=== PATIENT | male | born 1965 | race Two or more races ===

== ENCOUNTER 2024-06-22 03:38 | Emergency (ER) | payer BC, SELFPAY ==
[2024-06-22 03:39] VITALS: BMI 36.9
[2024-06-22 03:45] VITALS: BP 146/87; PULSE 76; RESP 18; TEMP 37; O2SAT 97
--- NOTE | 2024-06-22 03:59 | XR_ITS ---
Examination: PA chest single view Technique: Upright PA chest single view Exam date and time: June 22, 2024 0406 hrs. Indications: Chest pain epigastric pain today. Findings: Normal heart size Lungs are clear. The osseous structures are intact with old fracture right clavicle Impression: No active disease
--- NOTE | 2024-06-22 03:59 | EKG_ITS ---
[facility] Test Date: 2024-06-22 Pat Name: MIGUEL ENGLISH Department: Room: - Gender: Male Residential Assistant: : 1965 Requested By: Jaguar Haskins Order Number: [id number] Reading MD: Jaguar Haskins Measurements Intervals [place] Rate: 77 P: 28 [place]: 137 QRS: 24 QRSD: 93 T: 48 QT: 360 QTc: 409 Interpretive Statements SINUS RHYTHM No previous ECG available for comparison /store/S0/[id number]
--- NOTE | 2024-06-22 04:00 | PD.EDRME ---
Rapid Medical Screening Exam RME Arrival date/time: 06/22/24 03:38 58M with history of diverticulitis and cholecystectomy presents to ED with 2 days of lower chest/epigastric pain and N/V. Patient states these feels different than his diverticulitis. It feels like heartburn but in my stomach. Chief Complaint: Abdominal Pain Vital signs: Vital Signs Temperature 98.6 F 06/22/24 03:45 Pulse Rate 76 06/22/24 03:45 Respiratory Rate 18 06/22/24 03:45 Blood Pressure 146/87 H 06/22/24 03:45 Pulse Oximetry (%) 97 06/22/24 03:45 Oxygen Delivery Method Room Air 06/22/24 03:45
[2024-06-22] MEDS: MG HYD/AL HYD/SIME (Maalox Reg) SUSP 30 ML UDC PO (04:14)
[2024-06-22] MEDS: ONDANSETRON ODT 4 MG TABRAP PO (04:14)
[2024-06-22] MEDS: FAMOTIDINE 20 MG TABLET 40 MG PO (04:14)
[2024-06-22 04:53] LABS: Collection Type, Urine Clean Catch; RBC,Urine 0 /hpf (0-3); Squamous Epithelial Cell,Urine 0 /hpf (0-5); WBC,Urine 0 /hpf (0-5)
[2024-06-22 04:57] LABS: Basophils % (Auto) 0 % (0-2.5); Eosinophils # (Auto) 0.1 Thou/mm3 (0.0-0.5); Eosinophils % (Auto) 1 % (0-10); Hematocrit 49.9 % (41.0-53.0); Hemoglobin 17.9 g/dL (13.5-16.0); Immature Granulocytes % (Auto) 0 % (0-0); Immature Granulocytes Auto 0.04 Thou/mm3 (0.00-0.00); Lymphocytes % (Auto) 17 % (10-50); Mean Corpuscular HGB Conc 35.9 g/dl (31.0-37.0); Mean Corpuscular Hemoglobin 29.2 pg (25.0-35.0); Mean Corpuscular Volume 82 fL (80-100); Monocytes # (Auto) 0.5 Thou/mm3 (0.0-0.8); Monocytes % (Auto) 5 % (0-12); Neutrophils # (Auto) 8.9 Thou/mm3 (1.8-7.7); Neutrophils % (Auto) 77 % (37-80); Nucleated Red Blood Cell % 0 /100 WBC (0); Platelet Count 238 Thou/mm3 (140-440); Red Blood Count 6.12 Miln/mm3 (4.50-5.90); White Blood Count 11.6 Thou/mm3 (3.8-10.6)
[2024-06-22 05:20] LABS: Alanine Aminotransferase 12 U/L (10-49); Albumin, Serum 4.7 gm/dL (3.5-5.0); Albumin/Globulin Ratio 2.1 (1.2-2.2); Alkaline Phosphatase 60 U/L (46-116); Anion Gap 6 (7-16); Aspartate Amino Transferase 13 U/L (0-34); BUN/Creatinine Ratio 12 Ratio (12-20); Bilirubin,Total 2.3 mg/dL (0.3-1.2); Blood Urea Nitrogen 13 mg/dL (9-23); Calcium 9.5 mg/dL (8.3-10.6); Calcium (Corrected) 9.5 mg/dL (8.5-10.1); Carbon Dioxide 29.6 mMol/L (20.0-31.0); Chloride 102 mMol/L (98-107); Creatinine (Component) 1.1 mg/dL (0.6-1.3); Estimated Creatinine Clearance 87.5 mL/min (>60); Globulin 2.2 gm/dL (2.3-3.5); Glucose 141 mg/dL (74-106); Lipase 45 U/L (12-53); Osmolality,Calculated 277 (275-295); Potassium 3.6 mMol/L (3.4-5.1); Sodium 138 mMol/L (136-145); Total Protein 6.9 gm/dL (5.7-8.2); Troponin I < 0.002 ng/mL (0.0-0.045); eGFR > 60 See Note
[2024-06-22 05:28] LABS: Bacteria,Urine Rare; Bilirubin,Urine Negative (Negative); Blood,Urine Negative (Negative); Clarity,Urine Clear (Clear/Hazy); Color,Urine Yellow (Lt Yel-Yel); Glucose, Urine Negative (Negative); Hyaline Casts,Urine < 1 /hpf (0-1); Ketones,Urine Trace (Negative); Leukocyte Esterase,Urine Negative (Negative); Nitrite,Urine Negative (Negative); Protein,Urine Trace (Neg - Trace); Specific Gravity,Urine 1.031 (1.001-1.035); Urobilinogen,Urine Negative mg/dL (0.0-1.0)
[2024-06-22 05:36] LABS: Amphetamine/Methamp Scrn,U Negative (Negative); Barbiturate Screen,Urine Negative (Negative); Benzodiazepines Screen,Urine Negative (Negative); Benzoylecgonine Screen, Ur Negative (Negative); Fentanyl Screen,Urine Negative (Negative); Opiate Screen,Urine Negative (Negative); THC Screen,Urine Positive (Negative)
[2024-06-22 07:33] VITALS: BP 150/89; PULSE 71; RESP 18; O2SAT 98
--- NOTE | 2024-06-22 07:39 | PC.NURSE ---
patient came in today for abdominal pain and nausea states pain has been going on for 1 week
--- NOTE | 2024-06-22 08:33 | PD.EDABDPN ---
ED Abdominal Pain RME/HPI General Chief Complaint: Abdominal Pain Stated complaint: ABD PAIN, NAUSEA Time seen by provider: 06/22/24 04:29 Arrival date/time: 06/22/24 03:38 Limitations: no limitations RME / HPI RME / HPI narrative: 06/22/24 03:38 58M with history of diverticulitis and cholecystectomy presents to ED with 2 days of lower chest/epigastric pain and N/V. Patient states these feels different than his diverticulitis. It feels like heartburn but in my stomach. DR. ROJELIO STOLL ED EVALUATION: 58 year old male with history of diverticulitis years ago , s/p cholecystectomy presents to the ED for complaint of abdominal pain beginning 3 days ago. Mentioned he had pumpkin seeds prior to onset of pain and unsure if that is an attributing factor. States in the last few hours the pain became so severe, prompting ED visit. Pain described as a burning sensation in the epigastric region with a pressure pain all throughout, rating as severe. Accompanied by nausea. States he has experienced similar pain at lesser severity and during that time diagnosed with diverticulitis. Denies fevers, chills, chest pain, cough, shortness of breath, diarrhea, constipation, or urinary symptoms. Related Data Previous Rx's ?Medication ?Instructions ?Recorded dicyclomine 20 mg tablet 20 mg PO QID PRN abdominal pain 06/22/24 #20 tabs simethicone 500 mg capsule 500 mg PO QDAY #20 caps 06/22/24 Allergies Allergy/AdvReac Type Severity Reaction Status Date / Time No Known Allergies Allergy Verified 10/31/22 17:16 Review of Systems Review of Systems Narrative Review of Systems: GEN: No fever, no chills, no weight loss EYES: No discharge, no visual changes, no pain HEENT: No ear pain, no congestion, no sore throat PULM: No shortness of breath, no cough, no congestion CV: No chest pain, no dyspnea on exertion, no palpitations GI: + nausea, no vomiting, no diarrhea, +pain, no constipation : No frequency, no urgency, no dysuria MUSC/SKEL: No joint pain, no back pain SKIN: No rash NEURO: No weakness, no headache Past Medical History Past Medical History CARDIAC: Negative Congestive Heart Failure RESPIRATORY: Negative Chronic Obstructive Pulmonary Disease (COPD) GASTROINTESTINAL: Positive Diverticulitis GENITOURINARY: Negative Renal Disease ENDOCRINE: Negative Diabetes Mellitus Type 1 or Diabetes Mellitus Type 2 Social History SMOKING STATUS: Never smoker ED Exam General Limitations: Present no limitations General appearance: Present alert and other (Appears to be in pain ) Head Head exam: Present atraumatic, normocephalic and normal inspection Eye Eye exam: Present normal appearance, PERRL and EOMI ENT ENT exam: Present normal exam, normal oropharynx and mucous membranes moist Neck Neck exam: Present normal inspection, full ROM and trachea midline Chest Chest inspection: Present normal inspection and symmetric chest wall rise Respiratory Respiratory exam: Present normal lung sounds bilaterally Cardiovascular Cardiovascular exam: Present regular rate, normal rhythm and normal heart sounds Abdominal Exam Abdominal exam: Present soft, distention (moderate ), tenderness (moderate ttp in all quadrants, no point tenderness ) and normal bowel sounds; Absent guarding, rebound or rigidity Extremities Exam Extremities exam: Present normal inspection and full ROM Back Exam Back exam: Present normal inspection and full ROM Neurological Exam Neurological exam: Present alert, oriented X3 and CN II-XII intact Psychiatric Psychiatric exam: Present normal affect and normal mood Skin Skin exam: Present warm, dry, intact and normal color Course Quality Measures none Orders Category Date Time Status CT Screening NOW Care 06/22/24 08:38 Completed EKG (ED ONLY) *Do not use* NOW Care 06/22/24 03:[address] abdomen pelvis w con Stat Exams 06/22/24 08:38 Completed EKG (ED Only) Stat Exams 06/22/24 03:59 Draft XR chest 1V portable Stat Exams 06/22/24 03:59 Completed CBC Stat Lab 06/22/24 04:45 Completed Comprehensive Metabolic Panel Stat Lab 06/22/24 04:45 Completed Drug Screen,Urine Stat Lab 06/22/24 04:45 Completed Lipase Stat Lab 06/22/24 04:45 Completed Troponin I Stat Lab 06/22/24 04:45 Completed Urinalysis Stat Lab 06/22/24 04:45 Completed Famotidine [Pepcid] Med 06/22/24 03:59 Discontinued 40 mg PO X1 ONE Morphine Inj Med 06/22/24 08:39 Discontinued 2 mg IVP Q30M PRN Ondansetron Inj [Zofran Inj] Med 06/22/24 08:39 Discontinued 4 mg IV X1 ONE Ondansetron Odt [Zofran Odt] Med 06/22/24 04:01 Discontinued 4 mg PO X1 ONE mg Hyd/Al Hyd/Abigail Susp [Maalox Susp] Med 06/22/24 03:59 Discontinued 30 ml PO X1 ONE Reevaluation(s) Reevaluation #1: Patient remains clinically stable throughout the emergency department visit. We reviewed all the results, analysis, and treatment plans. Patient is amenable to discharge. Strict return precautions were outlined. Patient was discharged in stable condition. Time: 12:00 Vital Signs Vital signs: Vital Signs Temperature 98.6 F 06/22/24 03:45 Pulse Rate 76 06/22/24 03:45 Respiratory Rate 18 06/22/24 03:45 Blood Pressure 146/87 H 06/22/24 03:45 Pulse Oximetry (%) 97 06/22/24 03:45 Oxygen Delivery Method Room Air 06/22/24 03:45 Pulse ox is 97% on room air which is adequate. Abdominal Pain MDM MDM Narrative MDM Narrative:: Claribel Maharaj am scribing for and in the presence of Dr. Chew. Patient data External records reviewed:: [facility] previous records (I reviewed ED visit on 10/31/2022 for diverticulitis ) Clinical information provided by:: patient Social determinants that could affect healthcare access:: none Patient has the following chronic illnesses:: Diverticulitis How is presenting disease/condition affected by chronic disease/condition?: exacerbated by Evaluation data The following diagnostics were reviewed and interpreted by me:: lab results, radiology exam(s) and EKG tracing(s) (EKG at 04:05, NSR, rate 77, normal axis, no ectopy, no acute ischemia ) Lab and/or radiology exams considered but not ordered:: None Interpretation Summary: Ordering Physician: Jaguar Haskins PA-C Date of Service: 06/22/24 Procedure(s): XR chest 1V portable Accession Number(s): [id number] cc: Jasper Lowe MD; Ramiro Zarco MD; Jaguar Haskins PA-C~ Examination: PA chest single view Technique: Upright PA chest single view Exam date and time: June 22, 2024 0406 hrs. Indications: Chest pain epigastric pain today. Findings: Normal heart size Lungs are clear. The osseous structures are intact with old fracture right clavicle Impression: No active disease Dictated By: Jasper Lowe MD Signed By: <Electronically signed by Jasper Lowe MD in OV> 06/22/24 0823 Ordering Physician: Jacky Chew MD Date of Service: 06/22/24 Procedure(s): CT abdomen pelvis w con Accession Number(s): [id number] cc: Jasper Lowe MD; Ramiro Zarco MD; Jacky Chew MD~ Examination: CT abdomen with intravenous contrast CT pelvis with intravenous contrast 2-D coronal reconstructions 2-D sagittal reconstructions Date and time of exam:June 22, 2024 0919 hrs. Comparison December 05, 2022 Indications: Generalized abdominal pain bloating beginning 2 days ago, history cholecystectomy, history acute diverticulitis November 2022. CTDI: vol (mGy) 14.8 DLP: (mGycm) 995 Technique: Multiple axial sections of the abdomen and pelvis have been obtained. 64 slice high-resolution scanner used. 3 mm axial sections have been obtained, post intravenous injection 60 cc Isovue-370 2-D sagittal, coronal reconstructions obtained. Low dose protocols were performed. One or more of the following dose reduction techniques were used; automated exposure control, adjustment of the mA and/or KV according to patient size, use of iterative reconstruction technique. Findings: , Liver is mildly irregular in contour and enlarged 19 cm Diffuse fatty infiltration throughout the liver AP dimension spleen 14 cm Absent gallbladder No pancreatic or adrenal mass Multiple fluid distended small bowel loops in the anterior right abdomen, for instance axial image 70, wall thickening of small bowel loops Aorta is not enlarged No hydronephrosis or renal calculi No pericecal inflammatory change, there is mild wall thickening involving the colon Colonic diverticulosis Mild ascites Contracted urinary bladder Transverse prostate dimension 4.8 cm Impression: Hepatosplenomegaly Primary hepatocellular disease versus cirrhosis, clinical correlation advised Mild ascites Multiple fluid distended small bowel loops in the anterior right abdomen, differential would include enteritis, hepatic enteropathy, early small bowel obstruction not excluded, clinical correlation advised Hepatic colopathy pattern Dictated By: Jasper Lowe MD Signed By: <Electronically signed by Jasper Lowe MD in OV> 06/22/24 1042 Medications / Prescriptions Medications or Prescriptions considered but not ordered:: None Medication administrations:: Medication Administration History Discontinued Medications Al Hydrox/Mg Hydrox/Simethicone (Mg Hyd/Al Hyd/Abigail (Maalox Reg) Susp 30 Ml Udc) 30 ml PO X1 ONE Stop: 06/22/24 04:00 Last Admin: 06/22/24 04:14 Dose: 30 ml Documented By: GB Famotidine (Famotidine 20 Mg Tablet) 40 mg PO X1 ONE Stop: 06/22/24 04:00 Last Admin: 06/22/24 04:14 Dose: 40 mg Documented By: GB Morphine Sulfate (Morphine Sulf Inj 10 Mg/Ml Vial) 2 mg IVP Q30M PRN PRN Reason: abdominal pain Last Admin: 06/22/24 09:00 Dose: 2 mg Documented By: EF Ondansetron HCl (Ondansetron Odt 4 Mg Tabrap) 4 mg PO X1 ONE; Protocol Stop: 06/22/24 04:02 Last Admin: 06/22/24 04:14 Dose: 4 mg Documented By: GB Ondansetron HCl (Ondansetron Inj 2 Mg/Ml Inj 2 Ml) 4 mg IV X1 ONE; Protocol Stop: 06/22/24 08:40 Last Admin: 06/22/24 08:56 Dose: Not Given Documented By: DO Non-Admin Reason: Cancelled by Provider See above Consultations Consultation(s) initiated? (list below): No Diagnosis Differential diagnosis abdominal pain: abdominal pain, acute appendicitis, calculus of kidney, constipation and diverticulitis Most likely diagnosis given after review of the tests above:: Abdominal pain Hyperbilirubinemia Cirrhosis Admission Indicated Admission indicated?: not indicated Admission Request Was there a request for admission?: Yes Admission Attestation Admission request attestation: Discussed case with [] from Hospitalist service regarding admission. Discussed patients ED course, exam findings, labs, and radiology results. The Hospitalist [agrees,declines] to accept the patient for admission. Disposition Plan Disposition Plan: Discharge Discharge Attestation Discharge Attestation: The patient and all family members were given an opportunity to ask questions and understood the discharge instructions. Discharge instructions specifically effects, indications for sooner follow up or return to the emergency department, and the expected course of current diagnosis. Patient condition: Stable Discharge Plan Plan Patient Disposition: HOME (Self Care) Disposition Comment: Stable for discharge Patient condition on transfer: Stable Prescriptions/Referrals Prescriptions/Med Rec: New simethicone 500 mg capsule 500 mg PO QDAY Qty: 20 0RF dicyclomine 20 mg tablet 20 mg PO QID PRN (Reason: abdominal pain) Qty: 20 0RF Referrals: Haroldo (PCP)Ramiro MD [Primary Care Provider] - In 1 week Ck Fishman [Referring Provider] - In 1 week Problem List Clinical Impression: Abdominal pain, Hyperbilirubinemia, Cirrhosis Patient/Caregiver Discharge Instructions Discharge Activity: activity as tolerated Education Materials: Total Bilirubin (Blood), Abdominal Pain, Discharge Instructions for ..., ED Cirrhosis Additional Instructions: Attest that we ran here in the emergency department show no evidence evidence of diverticulitis. The CAT scan that we ran shows possible evidence of cirrhosis of your liver. Also your blood work showed a elevated bilirubin number. Your number tonight was 2.3. You should see your primary care doctor and you should be referred to a director of primary care which is a liver specialist. If you feel any worse please return to the ER right away and we will take care of you Follow-up with your primary care doctor within the next several days Print Language: Hungarian Stand Alone Forms: Bri Award Info., Patient Portal Info Letter
--- NOTE | 2024-06-22 08:38 | XR_ITS ---
Examination: CT abdomen with intravenous contrast CT pelvis with intravenous contrast 2-D coronal reconstructions 2-D sagittal reconstructions Date and time of exam:June 22, 2024 0919 hrs. Comparison December 05, 2022 Indications: Generalized abdominal pain bloating beginning 2 days ago, history cholecystectomy, history acute diverticulitis November 2022. CTDI: vol (mGy) 14.8 DLP: (mGycm) 995 Technique: Multiple axial sections of the abdomen and pelvis have been obtained. 64 slice high-resolution scanner used. 3 mm axial sections have been obtained, post intravenous injection 60 cc Isovue-370 2-D sagittal, coronal reconstructions obtained. Low dose protocols were performed. One or more of the following dose reduction techniques were used; automated exposure control, adjustment of the mA and/or KV according to patient size, use of iterative reconstruction technique. Findings: , Liver is mildly irregular in contour and enlarged 19 cm Diffuse fatty infiltration throughout the liver AP dimension spleen 14 cm Absent gallbladder No pancreatic or adrenal mass Multiple fluid distended small bowel loops in the anterior right abdomen, for instance axial image 70, wall thickening of small bowel loops Aorta is not enlarged No hydronephrosis or renal calculi No pericecal inflammatory change, there is mild wall thickening involving the colon Colonic diverticulosis Mild ascites Contracted urinary bladder Transverse prostate dimension 4.8 cm Impression: Hepatosplenomegaly Primary hepatocellular disease versus cirrhosis, clinical correlation advised Mild ascites Multiple fluid distended small bowel loops in the anterior right abdomen, differential would include enteritis, hepatic enteropathy, early small bowel obstruction not excluded, clinical correlation advised Hepatic colopathy pattern
[2024-06-22] MEDS: MORPHINE SULF INJ 10 MG/ML VIAL 2 MG IVP (09:00)
[2024-06-22 09:42] VITALS: BP 148/92; PULSE 63; RESP 17; TEMP 36.8; O2SAT 95
[2024-06-22 12:11] VITALS: BP 136/95; PULSE 74; RESP 15; TEMP 36.6; O2SAT 97
== END 2024-06-22 12:47 | disposition home or self-care (01) ==
PROVIDERS: Physician Assistant; Emergency Provider Emergency Medicine; PCP Family Medicine
DX: K74.60 Unspecified cirrhosis of liver (principal); E80.6 Other disorders of bilirubin metabolism; R16.2 Hepatomegaly with splenomegaly, not elsewhere classified; R18.8 Other ascites; K63.89 Other specified diseases of intestine; R10.13 Epigastric pain; R07.9 Chest pain, unspecified
CPT/HCPCS: 36415; 71045; 74177; 80053; 80307; 81001; 83690; 84484; 85025; 93005; 96374; 99285; A4649; J2270; Q0162; Q9967; A9270

== ENCOUNTER → 2024-11-28 | Outpatient (CLI) | payer BC, SELFPAY ==
[2024-11-28 12:43] LABS: Basophils # (Auto) 0.1 Thou/mm3 (0.0-0.2); Basophils % (Auto) 1 % (0-2.5); Eosinophils # (Auto) 0.1 Thou/mm3 (0.0-0.5); Eosinophils % (Auto) 2 % (0-10); Hematocrit 45.8 % (41.0-53.0); Hemoglobin 16.6 g/dL (13.5-16.0); Immature Granulocytes % (Auto) 0 % (0-0); Immature Granulocytes Auto 0.02 Thou/mm3 (0.00-0.00); Lymphocytes # (Auto) 1.8 Thou/mm3 (1.0-4.8); Lymphocytes % (Auto) 32 % (10-50); Mean Corpuscular HGB Conc 36.2 g/dl (31.0-37.0); Mean Corpuscular Hemoglobin 29.4 pg (25.0-35.0); Mean Corpuscular Volume 81 fL (80-100); Monocytes # (Auto) 0.3 Thou/mm3 (0.0-0.8); Monocytes % (Auto) 6 % (0-12); Neutrophils # (Auto) 3.3 Thou/mm3 (1.8-7.7); Neutrophils % (Auto) 59 % (37-80); Nucleated Red Blood Cell % 0 /100 WBC (0); Platelet Count 194 Thou/mm3 (140-440); RDW Standard Deviation 35.8 fL (35.1-43.9); Red Blood Count 5.64 Miln/mm3 (4.50-5.90); White Blood Count 5.6 Thou/mm3 (3.8-10.6)
[2024-11-28 12:49] LABS: INR 1.1 (0.9-1.3); Partial Thromboplastin Time 28.2 Seconds (22.0-36.0); Prothrombin Time 11.6 Seconds (9.0-12.2)
[2024-11-28 13:13] LABS: Alanine Aminotransferase 15 U/L (10-49); Albumin, Serum 4.6 gm/dL (3.5-5.0); Alkaline Phosphatase 61 U/L (46-116); Anion Gap 10 (7-16); Aspartate Amino Transferase 17 U/L (0-34); BUN/Creatinine Ratio 12 Ratio (12-20); Bilirubin,Direct 0.7 mg/dL (0.0-0.3); Bilirubin,Total 2.7 mg/dL (0.3-1.2); Blood Urea Nitrogen 13 mg/dL (9-23); Calcium 8.9 mg/dL (8.3-10.6); Carbon Dioxide 28.6 mMol/L (20.0-31.0); Chloride 103 mMol/L (98-107); Cholesterol 179 mg/dL (132-200); Creatinine (Component) 1.1 mg/dL (0.6-1.3); Glucose 116 mg/dL (74-106); HDL Cholesterol 36 mg/dL (40-60); LDL Cholesterol,Calculated 119 mg/dL (0-130); Osmolality,Calculated 284 (275-295); Potassium 4.1 mMol/L (3.4-5.1); Sodium 142 mMol/L (136-145); Thyroid Stimulating Hormone 0.86 uIU/mL (0.55-4.78); Total Protein 7.3 gm/dL (5.7-8.2); Triglycerides 121 mg/dL (30-150); eGFR > 60 See Note
[2024-11-28 13:16] LABS: Ferritin 200 ng/mL (10.5-307.3); Iron 114 mcg/dL (65-175); Percent Iron Saturation 35 % (20-55); T4 (Thyroxine) 12.4 mcg/dL (4.5-10.9); Total Iron Binding Capacity 318 mcg/dL (250-425); Unsaturated Iron Binding 204 (225-295)
[2024-11-28 14:29] LABS: Hepatitis A Antibody IgM Non Reactive (Non React); Hepatitis B Core Antibody IgM Non Reactive (Non React); Hepatitis B Surface Antigen Non Reactive (Non React); Hepatitis C Antibody Non Reactive (Non React)
[2024-12-09 07:00] LABS: ANA Screen, IFA POSITIVE (NEGATIVE); Ceruloplasmin* 21 mg/dL (14-30); Mitochondrial Ab NEGATIVE (NEGATIVE); T3,Total* 166 ng/dL (76-181)
== END | disposition home or self-care (01) ==
LOC: COPL 11:17
PROVIDERS: PCP Nurse Practitioner Family; Referring Provider Colon & Rectal Surgery; Visit Provider Colon & Rectal Surgery
DX: K74.60 Unspecified cirrhosis of liver (principal)
CPT/HCPCS: 36415; 80048; 80061; 80074; 80076; 82105; 82390; 82728; 83540; 83550; 84436; 84439; 84443; 84480; 85025; 85610; 85730; 86038; 86255

== ENCOUNTER → 2025-02-02 | Outpatient (CLI) | payer BC, SELFPAY ==
[2025-02-02 15:00] LABS: Misc Send Out* See Sep Rpt
[2025-02-05 23:34] LABS: Sm Antibody <1.0 NEG AI (<1.0 NEGATIVE)
[2025-02-06 06:28] LABS: Sm/RNP Antibody <1.0 NEG AI (<1.0 NEGATIVE)
== END | disposition home or self-care (01) ==
PROVIDERS: PCP Nurse Practitioner Family; Referring Provider Colon & Rectal Surgery; Visit Provider Colon & Rectal Surgery
DX: K74.60 Unspecified cirrhosis of liver (principal)
CPT/HCPCS: 36415; 81596; 83520; 86235; 86376

== ENCOUNTER → 2025-02-06 | Outpatient (CLI) | payer BC, SELFPAY ==
[2025-02-06 14:57] LABS: Glucose Estimated Average 103 mg/dL (80-131); Hemoglobin A1C 5.2 % Hgb (4.8-6.0)
[2025-02-06 15:02] LABS: C-Reactive Protein < 0.5 mg/dL (0.0-0.9); Free T4 (Free Thyroxine) 1.49 ng/dL (0.89-1.76); Thyroid Stimulating Hormone 0.84 uIU/mL (0.55-4.78)
[2025-02-06 15:17] LABS: Sed Rate (ESR) 1 mm/hr (0-20)
[2025-02-06 15:49] LABS: RA Screen Negative (Negative)
[2025-02-15 05:06] LABS: Sjogren's antibody (SS-A) <1.0 NEG AI (<1.0 NEGATIVE)
[2025-02-16 11:03] LABS: ANA Pattern NUCLEAR, SPECKLED; ANA Screen, IFA POSITIVE (NEGATIVE); ANA Titer 1:640 titer; CCP Antibody (IgG)* <16 Units; DNA (ds) Antibody* 6 IU/mL; Sjogren's Antibody (SS-B) <1.0 NEG AI (<1.0 NEGATIVE); Thyroid Peroxidase Antibodies* <1 IU/mL (<9)
== END | disposition home or self-care (01) ==
LOC: COPL 13:09
PROVIDERS: PCP Nurse Practitioner Family; Referring Provider Nurse Practitioner Family; Visit Provider Nurse Practitioner Family
DX: Z00.00 Encounter for general adult medical examination without abnormal findings (principal); R76.0 Raised antibody titer; R42 Dizziness and giddiness; R73.01 Impaired fasting glucose; M25.50 Pain in unspecified joint; Z13.0 Encounter for screening for diseases of the blood and blood-forming organs and certain disorders involving the immune mechanism; Z13.29 Encounter for screening for other suspected endocrine disorder; Z13.21 Encounter for screening for nutritional disorder; Z13.220 Encounter for screening for lipoid disorders
CPT/HCPCS: 36415; 83036; 84439; 84443; 85652; 86038; 86140; 86200; 86225; 86235; 86376; 86430

== ENCOUNTER → 2025-02-12 | Outpatient (CLI) | payer BC, SELFPAY ==
--- NOTE | 2025-02-12 13:23 | EKG_ITS ---
[facility] Test Date: 2025-02-12 Pat Name: MIGUEL ENGLISH Department: Room: - Gender: Male Salt Cutter: ANNY : 1965 Requested By: GHAZALA PEÑA Order Number: [id number] Reading MD: GHAZALA PEÑA Measurements Intervals [place] Rate: 71 P: 36 [place]: 146 QRS: 44 QRSD: 102 T: 36 QT: 382 QTc: 418 Interpretive Statements SINUS RHYTHM Compared to ECG 06/22/2024 04:05:41 No significant changes /store/S0/[id number]/[id number].pdf
== END | disposition home or self-care (01) ==
LOC: SEKG 13:14
PROVIDERS: PCP Nurse Practitioner Family; Referring Provider Nurse Practitioner Family; Visit Provider Nurse Practitioner Family
DX: R00.2 Palpitations (principal)
CPT/HCPCS: 93005